=== PATIENT | female | born 1985 | race Caucasian/White ===

== ENCOUNTER 2017-03-14 13:22 | Emergency (ER) | payer OTHER, MEDICAID ==
[~2017-03-14] VITALS: Ht 177.8 cm; Wt 59.9 kg
[~2017-03-14 13:22] MED LIST: ETODOLAC400 MG PO; FLEXERIL10 MG PO; HYDROCODONE-APA1 TA1 PO; KEFLEX 500MG.500 MG PO; LORTAB 5/500 501 TAB PO; MOTRIN 400MG.400 MG PO; NOMEDS; PREDNISONE 20MG20 MG PO; VOLTAREN75 MG PO
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
--- OUTSIDE RECORDS SUMMARY | 2017-03-14 13:40 | External Medical Summary Rpt | CCD ---
Author Author , VIVEK DOYLE Address Unknown Phone [email or web address] Purpose Continuity of Care Document - 07-04-2016 [...]
--- OUTSIDE RECORDS SUMMARY | 2017-03-14 13:41 | External Medical Summary Rpt | CCD ---
Author Author , VIVEK DOYLE Address Unknown Phone [email or web address] Immunization Name Date Rout CVX Reac Dose Comm Prov Is Faci e tion ent ider Refu lity Give sed n Td 12-0 9 999 Hist H149 No H149 (rodriguez 7-20 ori lt), 04 al Info adso rmat rbed ion - Sour ce Unsp ecif ied
--- OUTSIDE RECORDS SUMMARY | 2017-03-14 13:41 | External Medical Summary Rpt | CCD ---
Author Author [employer] Organization [employer] Address Unknown Phone Unavailable Purpose Continuity of Care Document - through 2016
--- OUTSIDE RECORDS SUMMARY | 2017-03-14 13:41 | External Medical Summary Rpt ---
Author Author VIVEK Bhatia, VIVEK Bhatia Organization [employer] Address Unknown Phone Unavailable
--- OUTSIDE RECORDS SUMMARY | 2017-03-14 13:41 | External Medical Summary Rpt | CCD ---
Author Author , VIVEK DOYLE Address Unknown Phone [email or web address] Immunization Name Date Rout CVX Reac Dose Comm Prov Is Faci e tion ent ider Refu lity Give sed n Td 12-0 9 999 Hist H149 No H149 (rodriguez 7-20 ori lt), 04 al Info adso rmat rbed ion - Sour ce Unsp ecif ied
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
[2017-03-14 13:54] VITALS: BP 132/80
== END 2017-03-14 13:56 | disposition home or self-care (01) ==
LOC: ER 13:22
DX: S05.11XA Contusion of eyeball and orbital tissues, right eye, initial encounter (principal); Z02.89 Encounter for other administrative examinations; F17.210 Nicotine dependence, cigarettes, uncomplicated